=== PATIENT | male | born 1950 | race African-American/Black ===

== ENCOUNTER 2018-03-04 09:27 | Outpatient (RCR) | payer MEDICARE, MEDICAID ==
[~2018-03-04 09:27] MED LIST: ALLOPURINOL100 M1 ORAL; Allopurinol; HYDROCORTISONE5 MG PO; LEVOTHYROXINE125 MCG ORAL; NORCO 5-325 TA1 EACH ORAL; OXYCONTIN10 MG ORAL; SULINDAC200 MG PO; ZOFRAN4 MG ORAL; [UNRECOGNIZED DRUG - OTHER]; hydrocortisone PO
== END 2018-03-21 | disposition home or self-care (01) ==
LOC: WCC 09:27
DX: L98.493 Non-pressure chronic ulcer of skin of other sites with necrosis of muscle (principal); T81.31XS Disruption of external operation (surgical) wound, not elsewhere classified, sequela; Z85.038 Personal history of other malignant neoplasm of large intestine; M19.90 Unspecified osteoarthritis, unspecified site; Z88.8 Allergy status to other drugs, medicaments and biological substances
CPT/HCPCS: 11043; 87070; 87181; 87205; G0463

== ENCOUNTER 2018-04-15 10:21 | Outpatient (RCR) | payer MEDICARE, MEDICAID | END 2018-04-18 | disposition home or self-care (01) | LOC: WCC 10:21 | DX: L98.493 Non-pressure chronic ulcer of skin of other sites with necrosis of muscle (principal); T81.31XS Disruption of external operation (surgical) wound, not elsewhere classified, sequela; E03.9 Hypothyroidism, unspecified; Z85.038 Personal history of other malignant neoplasm of large intestine; Z88.8 Allergy status to other drugs, medicaments and biological substances | CPT/HCPCS: G0463 ==

== ENCOUNTER 2018-04-29 10:16 | Outpatient (RCR) | payer MEDICARE, MEDICAID | END 2018-05-19 | disposition home or self-care (01) | LOC: WCC 10:16 | DX: L98.493 Non-pressure chronic ulcer of skin of other sites with necrosis of muscle (principal); T81.31XS Disruption of external operation (surgical) wound, not elsewhere classified, sequela; Z88.8 Allergy status to other drugs, medicaments and biological substances; X58.XXXA Exposure to other specified factors, initial encounter; Y92.9 Unspecified place or not applicable; I10 Essential (primary) hypertension; M19.90 Unspecified osteoarthritis, unspecified site; Z85.038 Personal history of other malignant neoplasm of large intestine | CPT/HCPCS: G0463 ==

== ENCOUNTER 2020-04-07 15:55 | Emergency (ER) | payer MEDICARE, MEDICAID ==
[~2020-04-07] VITALS: Ht 180.3 cm; Wt 96.2 kg
[2020-04-07] MEDS ORDERED: Piperacillin/Tazobactam 2.25 GM in NS 110 ML IVPB ONE (16:30)
[2020-04-07 17:06] LABS: BASOPHILS % (AUTO) 0.9 % (0.0-2.0); EOSINOPHILS % (AUTO) 1.3 % (0.0-3.0); HEMATOCRIT 44.8 % (42.0-52.0); LYMPHOCYTES % (AUTO) 16.1 % (20.0-45.0); MEAN CORPUSCULAR VOLUME 88 FL (80-99); MONOCYTES % (AUTO) 8.3 % (1.0-10.0); NEUTROPHILS % (AUTO) 73.5 % (45.0-75.0); PLATELET COUNT 280 K/UL (150-450); RED BLOOD COUNT 5.08 M/UL (4.70-6.10); RED CELL DISTRIBUTION WIDTH 15.4 % (11.6-14.8); WHITE BLOOD COUNT 9.9 K/UL (4.8-10.8)
[2020-04-07] MEDS ORDERED: Morphine Sulfate 2mg/ml Inj(IV/IM USE ONLY) IVP ONE ×2 (17:15→20:00)
[2020-04-07 17:16] LABS: CALCIUM 9.2 MG/DL (8.5-10.1); CREATININE 1.8 MG/DL (0.55-1.30); POTASSIUM 3.9 MMOL/L (3.5-5.1)
[2020-04-07 17:21] LABS: ALBUMIN 3.3 G/DL (3.4-5.0); ALBUMIN/GLOBULIN RATIO 0.8 (1.0-2.7); BILIRUBIN,TOTAL 0.4 MG/DL (0.2-1.0)
--- NOTE | 2020-04-07 18:48 | Emergency Room Report ---
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 Argueta is my supervising Physician whom patient management has been discussed with. Diagnostic Impression: Primary Impression: Dacryostenosis of left nasolacrimal duct Additional Impressions: Bacterial conjunctivitis of left eye Drug-seeking behavior ER Course Pt. presents to the ED c/o : [ ] eye pain, redness, scratching sensation and increased tearing x [ ] day(s). - Pt [reports/denies] Contact lens use. Ddx considered but are not limited to: corneal abrasion, acute glaucoma, globe rupture, FB, Corneal Ulcer, conjunctivitis. Iridis Vital signs: are WNL, pt. is afebrile H&PE are most consistent with: corneal abrasion ORDERS: -Tetracaine and Fluorescein Stain of the [ ] eye: -Increase fluorescein uptake in a linear fashion in the [ ] position of the [ ] eye, there is no involvement of the iris or pupil. Negative Mary sign. Pt. had positive relief of pain with tetracaine drops. there was negative evidence of Fb, deep ulcer, or rupture. ED INTERVENTIONS: none at this time. DISCHARGE: At this time pt. is stable for d/c to home. Will provide printed patient care instructions, and any necessary prescriptions. Care plan and follow up instructions have been discussed with the patient prior to discharge. . Last Vital Signs Date Time Temp Pulse Resp B/P (MAP) Pulse Ox O2 Delivery O2 Flow Rate FiO2 04/07/20 18:33 Room Air 04/07/20 15:56 98.1 90 20 132/84 (100) 99 Disposition: HOME, SELF-CARE Condition: Stable Scripts Tramadol Hcl* (ULTRAM*) 50 Mg Tablet 50 MG ORAL Q6H PRN for For Pain, #4 TAB 0 Refills Prov: Susan Coyle 04/07/20 Ofloxacin (OCUFLOX) 5 Ml Drops 2 DROP OP BID for 7 Days, #5 ML Prov: Susan Coyle 04/07/20 Ondansetron Odt* (ZOFRAN ODT*) 4 Mg Tab.rapdis 4 MG BC EVERY 6 HOURS PRN for Nausea & Vomiting, #10 TAB 0 Refills Prov: Susan Coyle 04/07/20 Amoxicillin/Potassium Clav 875-125* (AUGMENTIN 875-125 TABLET*) 1 Each Tablet 1 TAB ORAL TWICE A DAY for 10 Days, #20 TAB Prov: Susan Coyle 04/07/20 Referrals: NOT CHOSEN IPA/MD,REFERRING (PCP) Patient Instructions: Dacryocystitis Additional Instructions: Take medications as directed. Follow up with a Dye Range Operator within 3 days, even if your symptoms have resolved. Also follow up with your PCP within 3 days. --Please review list of primary care clinics, if you do not already have a primary care provider - Please note that this Emergency Department Report was dictated using Track[employer]mission specialist technology software, occasionally this can lead to erroneous entry secondary to interpretation by the dictation equipment. Susan Coyle Apr 07, 2020 18:48
[2020-04-07] MEDS ORDERED: HYDROcodone/Acetamin 5/325 tab ORAL ONE (19:00)
[2020-04-07] MEDS ORDERED: Omnipaque-300 100ml vial INJ ONE (19:00)
--- NOTE | 2020-04-07 19:06 | NUR ---
Patient presenting to ER for left orbital swelling with pus. Reported that he got up and his eye was swollen. Area is red, inflammed and warm to the touch. Medicated for pain. Awaiting CT .
--- NOTE | 2020-04-07 19:08 | NUR ---
Patient refusing Jackson, stating that pills are not effective. Reported to
--- NOTE | 2020-04-07 19:15 | NUR ---
ED Nurse Note: Report received from offgoing nurse SALLY Romeo. Patient is in bed AOx4, cooperative, complaining of pain left orbital. Left unit for CT. Stable condition.
--- NOTE | 2020-04-07 19:31 | NUR ---
Patient has returned from CT.
--- NOTE | 2020-04-07 20:01 | Diagnostic Imaging Report ---
EXAM: CT Orbits With Intravenous Contrast CLINICAL HISTORY: PAIN TECHNIQUE: Axial computed tomography images of the orbits with intravenous contrast. CTDI is 15.3 mGy and DLP is 205.3 mGy-cm. One or more of the following dose reduction techniques were used: automated exposure control, adjustment of the mA and/or kV according to patient size, use of iterative reconstruction technique. COMPARISON: No relevant prior studies available. FINDINGS: Orbits: Fluid collection in the extending from the left lacrimal duct measuring 1.2 x 0.8 x 1.5 cm. Surrounding skin thickening and inflammatory changes. Unremarkable appearance of the globes and post septal soft tissues. Sinuses: Mucosal thickening within the left sphenoid sinus and posterior ethmoid air cells. No acute sinusitis.. Bones/joints: No acute fracture. IMPRESSION: Fluid collection in the extending from the left lacrimal duct measuring 1.2 x 0.8 x 1.5 cm. Surrounding skin thickening and inflammatory changes. Findings consistent with dacryocystitis.
[2020-04-07 20:16] VITALS: BP 151/74
[2020-04-07] MEDS ORDERED: AUGMENTIN 875-1 EAC1 ORAL (20:32)
[2020-04-07] MEDS ORDERED: ONDANSETRON ODT4 MG BC (20:32)
[2020-04-07] MEDS ORDERED: OCUFLOX5 ML OP (20:34)
[2020-04-07] MEDS ORDERED: TRAMADOL HCL50 MG ORAL (20:49)
--- NOTE | 2020-04-07 21:20 | NUR ---
ER DISCHARGE NOTE: Patient is cleared to be discharged per ERMD, pt is aox4, on room air, with stable vital signs. pt was given dc and prescription instructions, pt was able to verbalize understanding, pt id band and iv site removed without complications. Patient was disrespecful and loud to staff, used profanity. pt took all belongings.
== END 2020-04-07 21:49 | disposition home or self-care (01) ==
LOC: EDBD 15:55 → EDUNIT# 15:55 → EMR 17:45
DX: H04.552 Acquired stenosis of left nasolacrimal duct (principal); H10.89 Other conjunctivitis; Z76.5 Malingerer [conscious simulation]; Z88.8 Allergy status to other drugs, medicaments and biological substances; E03.9 Hypothyroidism, unspecified; M10.9 Gout, unspecified; Z98.890 Other specified postprocedural states
CPT/HCPCS: 36415; 70481; 80053; 83690; 85025; 96361; 96365; 96375; 96376; 99284; J2270; J2405; J2543; J7030; Q9967; S0028